=== PATIENT | female | born 1955 ===

== ENCOUNTER 2023-01-08 07:38 | Inpatient (IN) | payer OTHER ==
[~2023-01-08] VITALS: Ht 162.6 cm; Wt 85.3 kg
[2023-01-09 08:46] LABS: URINE APPEARANCE Clear; URINE BILIRRUBIN Negative (NEGATIVE); URINE BLOOD Negative; URINE COLOR Yellow; URINE GLUCOSE Negative (NEGATIVE); URINE LEUKOCYTE Negative; URINE NITRATE Negative; URINE PROTEIN Negative (NEGATIVE); URINE UROBILINOGEN 0.2 E.U./dl
[2023-01-09 08:47] LABS: URINE BACTERIA 36.5 uL (0.0-1933); URINE EPITHELIAL CELLS 15.6 uL (0.0-38.8); URINE WBC 2.7 uL (0.0-23.2)
[2023-01-09] MEDS ORDERED: GLUMETZA1000 MG PO (08:50)
[2023-01-09] MEDS ORDERED: PRAVASTATIN SOD20 MG PO (08:50)
[2023-01-09 08:51] LABS: HEMATOCRIT 35.2 % (36.0-45.00); HEMOGLOBIN 11.8 g/dL (12.0-15.00); MEAN CELL VOLUME 82.3 fL (80.00-100.00); MEAN CORPUSCULAR HEMOGLOBIN 27.5 pg (27.00-32.0); MEAN CORPUSCULAR HGB CONC 33.5 g/dl (32.0-36.0); PLATELET COUNT 332 K/uL (150-450); RED BLOOD COUNT 4.27 M/uL (4.00-6.00); RED CELL DISTRIBUTION WIDTH 14.3 % (11.5-14.5)
[2023-01-09] MEDS ORDERED: ZESTRIL10 M1 PO (08:51)
[2023-01-09] MEDS ORDERED: [UNRECOGNIZED DRUG - OTHER] (08:51)
[2023-01-09] MEDS ORDERED: [UNRECOGNIZED DRUG - OTHER] IH (08:52)
[2023-01-09 09:18] LABS: INR 0.99; PARTIAL THROMBOPLASTIN TIME 29.7 SECONDS (22.0-34.0); PROTHROMBIN TIME 10.4 SECONDS (9.0-11.5)
[2023-01-09 09:31] LABS: ALBUMIN 3.6 gm/dL (3.4-5.0); BILIRUBIN TOTAL 0.44 mg/dL (0.3-1.2); CALCIUM 9.3 mg/dL (8.5-10.1); CREATININE SERUM 0.88 mg/dL (0.55-1.02); GFR 64.09; GLOBULINA 4.2 G/DL (2.4-3.5); POTASSIUM 4.11 mEq/L (3.5-5.1); TOTAL PROTEIN 7.8 gm/dL (6.4-8.2)
[2023-01-11] MEDS ORDERED: CEFDINIR300 MG PO (12:11)
[2023-01-14 16:59] LABS: HEMATOCRIT 31.7 % (36.0-45.00); HEMOGLOBIN 10.5 g/dL (12.0-15.00); RED BLOOD COUNT 3.82 M/uL (4.00-6.00)
[2023-01-15 06:25] LABS: HEMATOCRIT 31.4 % (36.0-45.00); HEMOGLOBIN 10.1 g/dL (12.0-15.00); MEAN CELL VOLUME 83.8 fL (80.00-100.00); MEAN CORPUSCULAR HGB CONC 32.2 g/dl (32.0-36.0); PLATELET COUNT 275 K/uL (150-450); RED BLOOD COUNT 3.74 M/uL (4.00-6.00); RED CELL DISTRIBUTION WIDTH 13.9 % (11.5-14.5)
[2023-01-16] MEDS ORDERED: CEFDINIR300 MG PO (07:05)
[2023-01-16] MEDS ORDERED: INTEGRA PLUS C1 EACH PO (07:05)
[2023-01-16] MEDS ORDERED: OXYC1TAB9 PO (07:05)
[2023-01-16] MEDS ORDERED: XARELTO10 MG PO (07:05)
[2023-01-16 07:51] LABS: HEMATOCRIT 31.7 % (36.0-45.00); HEMOGLOBIN 10.5 g/dL (12.0-15.00); MEAN CELL VOLUME 82.4 fL (80.00-100.00); MEAN CORPUSCULAR HEMOGLOBIN 27.2 pg (27.00-32.0); PLATELET COUNT 302 K/uL (150-450); RED BLOOD COUNT 3.85 M/uL (4.00-6.00); RED CELL DISTRIBUTION WIDTH 14.1 % (11.5-14.5)
== END 2023-01-16 14:12 | disposition home or self-care (01) | DRG 470 ==
LOC: SURH 01-14 05:50 → O/R 01-14 05:50 → SURG 01-14 07:30 → SURH 01-14 17:42 → MEDJ 01-15 14:24
PROVIDERS: ADMIT Orthopaedic Surgery Sports Medicine; ATTEND Orthopaedic Surgery Sports Medicine
PROC: 0SRD0J9 Replacement of Left Knee Joint with Synthetic Substitute, Cemented, Open Approach (ICD-10-PCS; principal; 2023-01-14 17:30)
DX: M17.12 Unilateral primary osteoarthritis, left knee (principal)